=== PATIENT | female | born 2000 | race Caucasian/White ===

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

== ENCOUNTER 2022-02-22 06:00 | Emergency (ER) | payer BC ==
[~2022-02-22] VITALS: Ht 167 cm; Wt 127.0 kg
[~2022-02-22 06:00] MED LIST changes: +DICY20TA PO; -DICY20TA10 PO; +HYDR-4226 PO; -OMEP40CA27 PO; +OMEP40CA6 PO
[2022-02-22] MEDS ORDERED: morphine INJ 10 MG/ML 1ML (SYR OR VIAL) IVP STA (06:30)
[2022-02-22] MEDS ORDERED: NS IV 1000 ML 1,000 ML IV SCH (06:30)
[2022-02-22 06:38] LABS: BASOPHILS % (AUTO) 0 % (0-10); EOSINOPHILS # (AUTO) 0.1 10^3/uL (0.0-0.3); EOSINOPHILS % (AUTO) 1 % (0-10); HEMATOCRIT 43 % (35-52); HEMOGLOBIN 14.1 g/dL (11.5-16.0); LYMPHOCYTES # (AUTO) 2.1 10^3/uL (1.0-4.0); LYMPHOCYTES % (AUTO) 16 % (12-44); MEAN CORPUSCULAR HEMOGLOBIN 26 pg (25-34); MEAN CORPUSCULAR HGB CONC 33 g/dL (32-36); MEAN CORPUSCULAR VOLUME 79 fL (80-99); MEAN PLATELET VOLUME 10.6 fL (9.0-12.2); MONOCYTES # (AUTO) 0.8 10^3/uL (0.0-1.0); MONOCYTES % (AUTO) 6 % (0-12); NEUTROPHILS # (AUTO) 10.2 10^3/uL (1.8-7.8); NEUTROPHILS % (AUTO) 77 % (42-75); PLATELET COUNT 385 10^3/uL (130-400); WHITE BLOOD COUNT 13.3 10^3/uL (4.3-11.0)
[2022-02-22 06:38] LABS: COLOR,URINE YELLOW; GLUCOSE, URINE (UA) TRACE (NEGATIVE); KETONES,URINE NEGATIVE (NEGATIVE); LEUKOCYTE ESTERASE ,URINE NEGATIVE (NEGATIVE); NITRITE,URINE NEGATIVE (NEGATIVE); PROTEIN,URINE TRACE (NEGATIVE)
--- NOTE | 2022-02-22 06:39 | ED Abdominal Pain ---
General Chief Complaint: Abdominal/GI Problems Stated Complaint: N/V,DIARRHEA,ABD PAIN Nursing Triage Note: Pt c/o lower abd pain since Wednesday and n/v that began at 0400 today. Pt denies fever or pain with urination. Hx of cholecystectomy. Source of Information: Patient Exam Limitations: No Limitations (BON CIFUENTES DO) History of Present Illness Date Seen by Provider: February 22, 2022 Time Seen by Provider: 06:15 Initial Comments Patient is a 21-year-old female with a history of cholecystectomy who presents with midepigastric pain starting approximately 2 days ago with nausea starting earlier today with multiple episodes of vomiting in the past 2 hours. Patient rates pain as moderate. It is described as dull and aching and nonradiating. It is nonmigratory. Patient also reports soft stools but denies diarrhea. No fever chills or sweats. No flank pain back pain. No urinary frequency urgency or dysuria. Patient has history of alternating constipation and diarrhea and reports constipation prior to most recent episode of abdominal pain. No other acute symptoms or complaints.. Timing/Duration: 12-24 Hours Location: Other Radiation: Other Activities at Onset: Other Modifying Factors: Improves With Other (BON CIFUENTES DO) Allergies and Home Medications Allergies Coded Allergies: Sulfa (Sulfonamide Antibiotics) (Verified Allergy, Unknown, 04/30/20) vancomycin (Verified Allergy, Unknown, 04/30/20) Patient Home Medication List Home Medication List Reviewed: Yes (BON CIFUENTES DO) Dicyclomine HCl (Dicyclomine HCl) 20 Mg Tablet, 20 MG PO QID PRN for abdominal pain/nausea Prescribed by: BLANCO ROGERS on 02/22/22 0758 Hydrocodone/Acetaminophen (Hydrocodone/Acetaminophen 5 MG/325 MG TAB) 1 Each Tablet, 1 TAB PO Q6H Prescribed by: ALYSIA DAS on 08/19/20 0921 Omeprazole (Omeprazole) 40 Mg Capsule.dr, 40 MG PO DAILY, (Reported) Entered as Reported by: GERARD DELONG on 04/30/20 1042 Ondansetron (Ondansetron Odt) 4 Mg Tab.rapdis, 4 MG PO Q6H PRN for NAUSEA/VOMITING Prescribed by: BLANCO SAWANTRT on 02/22/22 0758 Sucralfate (Carafate) 1 Gm Tablet, 1 GM PO ACHS, (Reported) Entered as Reported by: GERARD DELONG on 04/30/20 1042 Review of Systems Review of Systems Constitutional: see HPI EENTM: See HPI Respiratory: See HPI Cardiovascular: See HPI Gastrointestinal: See HPI Genitourinary: See HPI Musculoskeletal: see HPI Skin: see HPI Psychiatric/Neurological: See HPI Endocrine: See HPI Hematologic/Lymphatic: See HPI (BON CIFUENTES DO) All Other Systems Reviewed Negative Unless Noted: Yes (BON CIFUENTES DO) Past Dbxgyzv-Jhuyok-Tvqtds Hx Patient Social History Tobacco Use?: No Use of E-Cig and/or Vaping dev: No Substance use?: No Alcohol Use?: No Pt feels they are or have been: No (BON CIFUENTES DO) Immunizations Up To Date Influenza Vaccine Up-to-Date: No; Not Current (BON CIFUENTES DO) Seasonal Allergies Seasonal Allergies: No (BON CIFUENTES DO) Past Medical History Surgeries: No Respiratory: No Currently Using CPAP: No Currently Using BIPAP: No Cardiac: No Neurological: No Sexually Transmitted Disease: No HIV/AIDS: No Genitourinary: No Gastrointestinal: Yes Gastroesophageal Reflux, Chronic Constipation, Chronic Diarrhea, Gall Bladder Disease Musculoskeletal: No Endocrine: No HEENT: Yes (GLASSES) Loss of Vision: Denies Hearing Impairment: Denies Cancer: No Psychosocial: No Integumentary: No Blood Disorders: No Adverse Reaction/Blood Tranf: No (N/A) (BON CIFUENTES DO) Physical Exam Vital Signs Vital Signs - First Documented 02/22/22 06:05 Temp 36.5 Pulse 95 Resp 18 B/P (MAP) 146/88 (107) Pulse Ox 97 O2 Delivery Room Air (WILFRIDYABLANCO WAN MD) Vital Signs Capillary Refill : Less Than 3 Seconds (BON CIFUENTES DO) Height/Weight/BMI Height: 5'5.00" Weight: 210lbs. oz. 95.494077wa; 45.00 BMI Method:Stated General Appearance: WD/WN, mild distress HEENT: PERRL/EOMI, normal ENT inspection Neck: non-tender, full range of motion, supple Respiratory: lungs clear, normal breath sounds Cardiovascular: regular rate, rhythm Gastrointestinal: soft; No distended, No guarding; tenderness (Midepigastric pain/tenderness); No mass Extremities: normal range of motion, normal inspection, no pedal edema Back: normal inspection Neurologic/Psychiatric: no motor/sensory deficits, normal mood/affect, oriented x 3 (BON CIFUENTES DO) Focused Exam Sepsis Stage: Ruled Out (BON CIFUENTES DO) Progress/Results/Core Measures Results/Orders Lab Results Laboratory Tests Test 02/22/22 06:10 02/22/22 06:15 Range/Units Urine Color YELLOW Urine Clarity CLOUDY Urine pH 6.0 5-9 Urine Specific [place] >=1.030 1.016-1.022 Urine Protein TRACE H NEGATIVE Urine Glucose (UA) TRACE H NEGATIVE Urine Ketones NEGATIVE NEGATIVE Urine Nitrite NEGATIVE NEGATIVE Urine Bilirubin 1+ H NEGATIVE Urine Urobilinogen 0.2 < = 1.0 MG/DL Urine Leukocyte Esterase NEGATIVE NEGATIVE Urine RBC (Auto) NEGATIVE NEGATIVE Urine RBC NONE /HPF Urine WBC NONE /HPF Urine Squamous Epithelial Cells 2-5 /HPF Urine Crystals NONE /LPF Urine Bacteria LARGE H /HPF Urine Casts NONE /LPF Urine Mucus NEGATIVE /LPF Urine Culture Indicated YES Urine Test NEGATIVE NEGATIVE White Blood Count 13.3 H 4.3-11.0 10^3/uL Red Blood Count 5.50 H 3.80-5.11 10^6/uL Hemoglobin 14.1 11.5-16.0 g/dL Hematocrit 43 35-52 % Mean Corpuscular Volume 79 L 80-99 fL Mean Corpuscular Hemoglobin 26 25-34 pg Mean Corpuscular Hemoglobin Concent 33 32-36 g/dL Red Cell Distribution Width 14.1 10.0-14.5 % Platelet Count 385 130-400 10^3/uL Mean Platelet Volume 10.6 9.0-12.2 fL Immature Granulocyte % (Auto) 0 % Neutrophils (%) (Auto) 77 H 42-75 % Lymphocytes (%) (Auto) 16 12-44 % Monocytes (%) (Auto) 6 0-12 % Eosinophils (%) (Auto) 1 0-10 % Basophils (%) (Auto) 0 0-10 % Neutrophils # (Auto) 10.2 H 1.8-7.8 10^3/uL Lymphocytes # (Auto) 2.1 1.0-4.0 10^3/uL Monocytes # (Auto) 0.8 0.0-1.0 10^3/uL Eosinophils # (Auto) 0.1 0.0-0.3 10^3/uL Basophils # (Auto) 0.0 0.0-0.1 10^3/uL Immature Granulocyte # (Auto) 0.0 0.0-0.1 10^3/uL Sodium Level 141 135-145 MMOL/L Potassium Level 3.9 3.6-5.0 MMOL/L Chloride Level 105 98-107 MMOL/L Carbon Dioxide Level 23 21-32 MMOL/L Anion Gap 13 5-14 MMOL/L Blood Urea Nitrogen 10 7-18 MG/DL Creatinine 0.60 0.60-1.30 MG/DL Estimat Glomerular Filtration Rate 132 BUN/Creatinine Ratio 17 Glucose Level 141 H 70-105 MG/DL Calcium Level 8.7 8.5-10.1 MG/DL Corrected Calcium 9.0 8.5-10.1 MG/DL Total Bilirubin 0.2 0.1-1.0 MG/DL Aspartate Amino Transf (AST/SGOT) 17 5-34 U/L Alanine Aminotransferase (ALT/SGPT) 20 0-55 U/L Alkaline Phosphatase 96 40-136 U/L Total Protein 7.6 6.4-8.2 GM/DL Albumin 3.6 3.2-4.5 GM/DL Lipase 17 8-78 U/L (BLANCO ROGERS MD) My Orders Orders - BLANCO ROGERS MD Ceftriaxone 1 Gm Pre-Mix (Rocephin 1 Gm (02/22/22 08:02) (BLANCO ROGERS MD) Medications Given in ED Current Medications Medications Dose Ordered Sig/Simi Route Start Time Stop Time Status Last Admin Dose Admin Famotidine 20 mg ONCE ONCE IVP 02/22/22 07:15 02/22/22 07:16 DC 02/22/22 07:17 20 MG Ketorolac Tromethamine 30 mg ONCE ONCE IVP 02/22/22 07:15 02/22/22 07:16 DC 02/22/22 07:17 30 MG Ondansetron HCl 8 mg ONCE ONCE IVP 02/22/22 06:45 02/22/22 06:46 DC 02/22/22 06:44 8 MG (BLANCO ROGERS MD) Vital Signs/I&O 02/22/22 06:05 Temp 36.5 Pulse 95 Resp 18 B/P (MAP) 146/88 (107) Pulse Ox 97 O2 Delivery Room Air (ENYART,BLANCO E MD) Blood Pressure Mean: 107 Progress Progress Note #1: Progress Note I assumed care of the patient at [address] Cifuentes at shift change. Patient was waiting on CT result to come back. She had mild elevation of her WBC to 13.3. Her Chemistry was stable with mild elevation of glucose. UA had Large number of bacteria with only 2-5 epithelial cells. She had elevated specific gravity to go with some dehydration. Progress Note #2: Time: 07:[address] scan shows normal appendix and uterus/ovaries. She has some inflammation around her small intestines with mural wall thickening for enteritis. No free air, obstruction, pneumatosis. Mild increase in lymph node size in RLQ for possible mesenteric adenitis. With her Large bacteria in urine and dehydration as well as the CT findings of enteritis will try treating for UTI as well as supportive care for enteritis. Encoruage fluids and rest. Try Bentyl for abdominal pain/cramping. Follow up with clinic this week if not improving after 48 to 72 hours of antibiotics. (BLANCO ROGERS MD) Diagnostic Imaging Diagonstic Imaging: CT Plain Films/CT/US/NM/MRI: abdomen, pelvis Comments NAME: PETER AQUINO [facility] REC#: [id number] PT STATUS: REG ER : 2001 PHYSICIAN: BON CIFUENTES DO ADMIT DATE: 02/22/22/ER FS Draft Date of Exam:02/22/22 CT ABDOMEN/PELVIS WO PROCEDURE: CT abdomen and pelvis without contrast. TECHNIQUE: Multiple contiguous axial images were obtained through the abdomen and pelvis without the use of intravenous contrast. Auto Exposure Controls were utilized during the CT exam to meet ALARA standards for radiation dose reduction. INDICATION: Epigastric pain, nausea, vomiting COMPARISON: 04/14/2020 FINDINGS: The visualized lung bases are clear. Cholecystectomy. The liver and spleen are unremarkable. The adrenal glands are unremarkable. The unenhanced pancreas is unremarkable. The kidneys and bilateral ureters are unremarkable. No aneurysmal dilatation of the abdominal aorta. The appendix is unremarkable. The urinary bladder is decompressed, therefore not well evaluated. The uterus and adnexal structures are unremarkable for age. Significant mural thickening is identified associated with multiple loops of small bowel, particularly within the left abdomen. This is associated with mild adjacent fat stranding and inflammatory stranding. No bowel obstruction or pneumatosis. Lymph nodes within the right lower quadrant appear slightly increased in size and number. Trace free fluid. No free air. No acute osseous abnormality. IMPRESSION: Abnormal mural thickening and inflammatory stranding associated with the small bowel, particularly within the left abdomen likely relates to underlying enteritis. This may be on the basis of an infectious or inflammatory process. There is no evidence of bowel obstruction. Prominent lymph nodes in the right lower quadrant, likely reactive and related to mesenteric adenitis. Cholecystectomy. Dictated on workstation # [id number] Dict: 02/22/22724 Trans: 02/22/22731 CVB [id number] Interpreted by: RACIEL ANNE MD Electronically signed by: Reviewed: Reviewed by Me (BLANCO ROGERS MD) Departure Communication (Admissions) CT abdomen pelvis: Abdominal pain nausea vomiting with history of cholecystectomy and chronic constipation diarrhea. Will obtain lab and imaging. IV fluids morphine and Zofran given. Care to be transitioned to oncoming ERP at 07:00 for review of labs, imaging and final disposition. (BON CIFUENTES DO) Impression Primary Impression: Abdominal pain Qualified Codes: R10.13 - Epigastric pain Additional Impressions: Nausea and vomiting Qualified Codes: R11.14 - Bilious vomiting Bacteriuria Enteritis Disposition: HOME, SELF-CARE Condition: Stable Departure-Patient Inst. Decision time for Depature: 08:12 (BLANCO ROGERS MD) Referrals: SELFGUS MD (PCP/Family) Primary Care Physician Patient Instructions: Abdominal Pain, Adult ED, Acute Cystitis (DC), [place] Diet, Full Liquid Diet, Nausea and Vomiting, Adult ED Add. Discharge Instructions: Try starting with a full liquid diet for next 24 hours. If you are tolerating that ok then you could add in bland foods and advance back to a more regular diet as you tolerate it. Take Dicyclomine (Bentyl) for abdominal pain and it will help with nausea some as well. Zofran dissolving tablets for nausea. Take full course of antibiotics to treat for bacteria in urine and UTI. If not doing better after 48 to 72 hours of antibiotics and medicine then check with clinic or if worsening then you may need repeated labs or additional testin g. All discharge instructions reviewed with patient and/or family. Voiced understanding. Scripts Ciprofloxacin HCl (Ciprofloxacin HCl) 500 Mg Tablet 500 MG PO BID for UTI for 5 Days, #10 TAB 0 Refills Prov: BLANCO ROGERS MD 02/22/22 Ondansetron (Ondansetron Odt) 4 Mg Tab.rapdis 4 MG PO Q6H PRN for NAUSEA/VOMITING for 5 Days, #20 TAB 0 Refills Prov: BLANCO ROGERS MD 02/22/22 Dicyclomine HCl (Dicyclomine HCl) 20 Mg Tablet 20 MG PO QID PRN for abdominal pain/nausea for 7 Days, #28 TAB 0 Refills Prov: BLANCO ROGERS MD 02/22/22 BON CIFUENTES DO February 22, 2022 06:39 BLANCO ROGERS MD February 22, 2022 07:52
[2022-02-22 06:40] LABS: BILIRUBIN,URINE 1+ (NEGATIVE); CLARITY,URINE CLOUDY
[2022-02-22 06:41] LABS: BACTERIA,URINE LARGE /HPF
[2022-02-22] MEDS ORDERED: ONDANSETRON 4 MG/2 ML (SDV) Z0FRAN IVP ONE (06:45)
[2022-02-22 06:54] LABS: CREATININE SERUM 0.6 MG/DL (0.60-1.30); POTASSIUM 3.9 MMOL/L (3.6-5.0)
[2022-02-22 06:55] LABS: ALBUMIN 3.6 GM/DL (3.2-4.5); BILIRUBIN,TOTAL 0.2 MG/DL (0.1-1.0); CALCIUM 8.7 MG/DL (8.5-10.1); TOTAL PROTEIN 7.6 GM/DL (6.4-8.2)
[2022-02-22] MEDS ORDERED: FAMOTIDINE 20MG/2ML IV (PEPCID) IVP ONE (07:15)
[2022-02-22] MEDS ORDERED: KETOROLAC 30 MG/ML VIAL IVP ONE (07:15)
--- NOTE | 2022-02-22 07:32 | Diagnostic Imaging Report ---
PROCEDURE: CT abdomen and pelvis without contrast. TECHNIQUE: Multiple contiguous axial images were obtained through the abdomen and pelvis without the use of intravenous contrast. Auto Exposure Controls were utilized during the CT exam to meet ALARA standards for radiation dose reduction. INDICATION: Epigastric pain, nausea, vomiting COMPARISON: 04/14/2020 FINDINGS: The visualized lung bases are clear. Cholecystectomy. The liver and spleen are unremarkable. The adrenal glands are unremarkable. The unenhanced pancreas is unremarkable. The kidneys and bilateral ureters are unremarkable. No aneurysmal dilatation of the abdominal aorta. The appendix is unremarkable. The urinary bladder is decompressed, therefore not well evaluated. The uterus and adnexal structures are unremarkable for age. Significant mural thickening is identified associated with multiple loops of small bowel, particularly within the left abdomen. This is associated with mild adjacent fat stranding and inflammatory stranding. No bowel obstruction or pneumatosis. Lymph nodes within the right lower quadrant appear slightly increased in size and number. Trace free fluid. No free air. No acute osseous abnormality. IMPRESSION: Abnormal mural thickening and inflammatory stranding associated with the small bowel, particularly within the left abdomen likely relates to underlying enteritis. This may be on the basis of an infectious or inflammatory process. There is no evidence of bowel obstruction. Prominent lymph nodes in the right lower quadrant, likely reactive and related to mesenteric adenitis. Cholecystectomy. Dictated by: Dictated on workstation # [id number]
[2022-02-22] MEDS ORDERED: ONDA4TAB11 PO (07:58)
[2022-02-22] MEDS ORDERED: DICY20TA PO (07:58)
[2022-02-22] MEDS ORDERED: cefTRIAXone 1 GM PRE-MIX 50 ML IV STA (08:02)
[2022-02-22] MEDS ORDERED: CIPR500T5 PO (08:13)
[2022-02-22 08:37] VITALS: BP 124/72
== END 2022-02-22 08:38 | disposition home or self-care (01) ==
LOC: EDUNIT# 06:00 → ER FS 06:02
DX: K52.9 Noninfective gastroenteritis and colitis, unspecified (principal); R82.71 Bacteriuria; R73.09 Other abnormal glucose; D72.829 Elevated white blood cell count, unspecified; Z90.49 Acquired absence of other specified parts of digestive tract; Z32.02 Encounter for pregnancy test, result negative
CPT/HCPCS: 36415; 74176; 80053; 81000; 83690; 84703; 85025; 87088